=== PATIENT | male | born 1960 | race Asian ===

== ENCOUNTER 2019-07-23 10:02 | Inpatient (IN) | payer OTHER ==
[~2019-07-23] VITALS: Ht 170.2 cm; Wt 75.6 kg
[2019-07-23 11:00] LABS: BASOPHIL % 0.2 % (0-2); PLATELET COUNT 207 x10^3mcL (130-400); RED CELL DISTRIBUTION WIDTH 13.1 % (11.5-14.5)
[2019-07-23 11:24] LABS: CALCIUM 9.3 mg/dL (8.5-10.1); CARBON DIOXIDE 27.6 mmol/L (21-32); CHLORIDE SERUM 100 mmol/L (98-107); CREATININE SERUM 0.9 mg/dL (0.7-1.3); GFR1 > 60 mL/min; GLUCOSE SERUM 134 mg/dL (74-106); POTASSIUM SERUM 4.6 mmol/L (3.5-5.1); SODIUM SERUM 136 mmol/L (136-145)
[2019-07-23 11:28] LABS: ALBUMIN 4.4 g/dL (3.4-5.0); ALKALINE PHOSPHATASE 98 U/L (46-116); ALT/SGPT 29 U/L (16-63); AST/SGOT 24 U/L (15-37); BILIRUBIN TOTAL 0.9 mg/dL (0.20-1.00); LIPASE 155 IU/L (73-393)
[2019-07-23 11:32] LABS: TOTAL PROTEIN, SERUM 8.4 g/dL (6.4-8.2)
[2019-07-23 13:12] LABS: microscopic required? NO
[2019-07-23 13:20] LABS: urine erythrocyte NEGATIVE (NEGATIVE)
[2019-07-23 19:04] VITALS: BP 140/92
[2019-07-23 19:10] VITALS: Ht 170.2 cm; Wt 75.6 kg
[2019-07-23 19:27] VITALS: BP 115/79
[2019-07-24 04:46] VITALS: BP 126/78
[2019-07-24 07:02] LABS: CALCIUM 8.4 mg/dL (8.5-10.1); CARBON DIOXIDE 24.3 mmol/L (21-32); CHLORIDE SERUM 105 mmol/L (98-107); GFR1 > 60 mL/min; GLUCOSE SERUM 113 mg/dL (74-106); MAGNESIUM 2.2 mg/dL (1.8-2.4); SODIUM SERUM 139 mmol/L (136-145)
[2019-07-24 07:18] LABS: BASOPHIL % 0.2 % (0-2); PLATELET COUNT 175 x10^3mcL (130-400)
[2019-07-24 07:29] VITALS: BP 101/64
[2019-07-24 11:43] VITALS: BP 112/71
[2019-07-24] MEDS ORDERED: ACETAMINOPHEN-H1 TA1 PO (11:52)
[2019-07-24 15:16] VITALS: BP 112/71
[2019-07-24 16:24] VITALS: BP 105/63
== END 2019-07-24 16:46 | disposition home or self-care (01) | DRG 419 ==
LOC: ED 10:02 → MU 13:27
PROVIDERS: Emergency Medicine; Surgery; ADMIT Hospitalist
PROC: 0FT44ZZ Resection of Gallbladder, Percutaneous Endoscopic Approach (ICD-10-PCS; principal; 2019-07-23 15:30)
DX: K81.0 Acute cholecystitis (principal); D72.829 Elevated white blood cell count, unspecified
CPT/HCPCS: G0378; J1170; J1644; J1885; J2405; J2543; J3010; J3490; J7030; Q0092